=== PATIENT | male | born 1960 | race Caucasian/White ===

== ENCOUNTER 2019-09-01 17:38 | Emergency (ER) | payer OTHER ==
--- NOTE | 2019-09-01 18:19 | CT ---
CT Brain WO Con History: Injury. Trauma. Comparison: None. Findings: No acute hemorrhage or infarct. No midline shift or mass effect. Ventricular size and extra -axial CSF spaces are normal. Calvarium is intact. Paranasal sinuses and mastoids are clear. Impression: No acute intracranial abnormality.
[2019-09-01] MEDS ORDERED: Proparacaine 0.5% Opth 15 ML BOT ONE (18:26)
--- NOTE | 2019-09-01 18:37 | CT ---
CT Cervical Spine WO Con History: Neck pain. Trauma. Comparison: None. Findings: ACDF hardware at C4-C5 as well as C7/T1. No acute fracture or malalignment. High-grade face t arthropathy bilaterally C2-C5. Reason surgical clips on the left anterior neck supraclavicular area. No prevertebral hematoma. No cervical adenopathy. Lung apices have mild paraseptal emphysema. Impression: Degenerative changes. No acute fracture or malalignment.
[2019-09-01 19:06] LABS: #Eosinphils 0.1 thou/uL (0.0-0.7); #Lymphocytes 1.7 thou/uL (1.20-3.40); #Monocytes 0.5 thou/uL (0.11-0.59); #Neutrophils 2.5 thou/uL (1.40-6.50); %Basophils 0.6 % (0.0-1.0); %Eosinophils 1.2 % (0.0-10.0); %Lymphocytes 35.6 % (21.0-51.0); %Neutrophils 51.6 % (42.0-75.0); Hemoglobin 15.3 g/dL (14.0-18.0); Mean Corpuscular HGB CONC 34.2 g/dL (32.0-36.0); Mean Corpuscular Hemoglobin 31.3 pg (27.0-31.0); Mean Corpuscular Volume 91.5 fL (78.0-98.0); Mean Platelet Volume 7.6 fL (7.4-10.4); Platelet Count 211 thou/uL (130-400); RBC Distribution Width 11.7 % (11.5-14.5); Red Blood Cell (RBC) Count 4.91 mill/uL (4.70-6.10); White Blood Cell (WBC) Count 4.9 thou/uL (4.8-10.8)
[2019-09-01 19:21] LABS: Platelet Morphology Comment Appears Adequate; RBC Morphology Normal
== END 2019-09-01 19:50 ==
LOC: NAV ERS 17:38
DX: S06.0X0A Concussion without loss of consciousness, initial encounter (principal); H57.89 Other specified disorders of eye and adnexa; I50.9 Heart failure, unspecified; J44.9 Chronic obstructive pulmonary disease, unspecified; F32.9 Major depressive disorder, single episode, unspecified; Z79.51 Long term (current) use of inhaled steroids; W22.8XXA Striking against or struck by other objects, initial encounter
CPT/HCPCS: 70450; 72125; 85025; 85652; 86140